=== PATIENT | male | born 1970 | race African-American/Black ===

== ENCOUNTER 2017-12-16 14:27 | Emergency (ER) | payer BC, OTHER ==
[~2017-12-16] VITALS: Ht 188 cm; Wt 195.1 kg
[~2017-12-16 14:27] MED LIST: AUGMENTIN 875875 MG PO; CENTRUM CHEWAB1 EACH PO; DOXYCYCLINE HYC20 MG PO; FISH OIL 1,0001 EAC5 PO; GLUCOPHAGE XR500 MG PO; MULTIVITAMINS PO; NORCO 5-325 TA1 EACH PO; VITAMINC500 PO
[2017-12-16] MEDS ORDERED: AUGMENTIN 875-1 EACH PO ×2 (15:45→15:49)
[2017-12-16 15:55] LABS: URINE BILIRUBIN NEGATIVE (Negative); URINE BLOOD NEGATIVE (Negative); URINE CLARITY CLEAR; URINE COLOR YELLOW; URINE GLUCOSE-RANDOM* NEGATIVE (Negative); URINE KETONES NEGATIVE (Negative); URINE LEUKOCYTES-REFLEX NEGATIVE (Negative); URINE NITRITE-REFLEX NEGATIVE (Negative); URINE PROTEIN (DIPSTICK) TRACE (Negative); URINE UROBILINOGEN 0.2 E.U./dl (0.2-1.0)
== END 2017-12-16 16:04 | disposition home or self-care (01) ==
LOC: ER 14:27
PROVIDERS: Emergency Medicine
DX: N49.2 Inflammatory disorders of scrotum (principal); G47.30 Sleep apnea, unspecified